=== PATIENT | female | born 1995 | race Hispanic/Latino ===

== ENCOUNTER 2021-10-16 13:29 | Emergency (ER) | payer MEDICARE, OTHER ==
[~2021-10-16] VITALS: Ht 160 cm; Wt 72.6 kg
[2021-10-16] MEDS ORDERED: ONDANSETRON HCL 4 MG ORAL DISINTEGRATING TAB PO ONE (13:45)
[2021-10-16] MEDS ORDERED: IBUPROFEN600 MG PO (14:25)
== END 2021-10-16 14:37 | disposition home or self-care (01) ==
LOC: ER 13:33
DX: S16.9XXA Unspecified injury of muscle, fascia and tendon at neck level, initial encounter (principal); R11.0 Nausea; V49.50XA Passenger injured in collision with unspecified motor vehicles in traffic accident, initial encounter
CPT/HCPCS: 72125; 99283